=== PATIENT | male | born 1950 | race Two or more races ===

== ENCOUNTER 2019-01-08 13:43 | Outpatient (CLI) | payer MEDICARE, BC ==
[~2019-01-08] VITALS: Ht 175.3 cm; Wt 85.3 kg
[2019-01-08] MEDS ORDERED: ASPIRIN EC81 MG ORAL (16:35)
[2019-01-08 16:36] VITALS: BP 120/77
--- NOTE | 2019-01-08 20:30 | Consultation ---
DATE OF CONSULTATION: 01/08/2019 CHIEF COMPLAINT: Abdominal pain, GERD, family history of pancreatic malignancy. HISTORY OF PRESENT ILLNESS: This is a very pleasant 68-year-old male who was referred to us for complaint of right lower quadrant abdominal pain. According to him, this pain comes and goes. Over time, it is getting worse. Sometimes, he feels a bulge. Apparently, he was seen by a surgeon. He was told that he has a hernia that needs to be repaired. He also had a CT of the abdomen and pelvis, which actually showed hernia on the left side, not on the right side. Also evidence of diverticulosis, otherwise no other findings were seen. PAST MEDICAL HISTORY: 1. GERD. 2. History of coronary artery disease. PAST SURGICAL HISTORY: History of cardiac stent placement. MEDICATIONS: Currently on aspirin. FAMILY HISTORY: Father had coronary artery disease. Mother had diabetes and mother had a pancreatic mass. SOCIAL HISTORY: The patient occasionally drinks. Denies any tobacco or IV drug abuse. . Lives at home with his . ALLERGIES: No known drug allergies. REVIEW OF SYSTEMS: A 10-point review of systems was performed and positive for GERD and abdominal pain as dictated above. PHYSICAL EXAMINATION: VITAL SIGNS: Temperature 97.9, blood pressure 120/77, pulse is 60, respirations 20. HEENT: Normocephalic and atraumatic. Sclerae anicteric. NECK: Supple. No evidence of obvious lymphadenopathy. CARDIOVASCULAR: Regular rhythm. Plus S1 and S2. No obvious murmur. LUNGS: Clear to auscultation bilaterally. ABDOMEN: Positive bowel sounds. Soft and nontender. No rebound. No guarding. No peritoneal sign. EXTREMITIES: No cyanosis. No clubbing. No edema. ASSESSMENT: 1. GERD. 2. Screening colonoscopy. 3. Abdominal pain. 4. Diverticulosis. PLAN: At this time, the cause of abdominal pain is not clear. Differential diagnosis would be a lesion in the cecum or terminal ileum causing this right lower quadrant intermittent abdominal pain versus hernia. Plan is to do endoscopy and colonoscopy, endoscopy for chronic GERD and colonoscopy for screening and also to evaluate right lower quadrant abdominal pain. After that, we will make further recommendation. Meanwhile, the patient was given prescription for Linzess for chronic constipation. Elliot Katya Estes DR: Chapito JOB#: [id number] CC:
== END 2019-01-08 15:43 | disposition home or self-care (01) ==
LOC: PAN 13:43
DX: R10.9 Unspecified abdominal pain (principal); K21.9 Gastro-esophageal reflux disease without esophagitis; Z85.07 Personal history of malignant neoplasm of pancreas; I25.10 Atherosclerotic heart disease of native coronary artery without angina pectoris; Z79.82 Long term (current) use of aspirin; K57.90 Diverticulosis of intestine, part unspecified, without perforation or abscess without bleeding
CPT/HCPCS: 99202

== ENCOUNTER 2019-01-10 10:25 | Day surgery (SDC) | payer MEDICARE, BC ==
[2019-01-10] VITALS (10 sets, daily range): BP systolic 106–140; BP diastolic 54–78
[~2019-01-10] VITALS: Ht 175.3 cm; Wt 85.3 kg
[~2019-01-10 10:25] MED LIST: ASPIRIN EC81 MG ORAL
--- NOTE | 2019-01-10 11:20 | NUR ---
IV LR WAS STARTED BY YOBANY KIRK RN. NO S/S OF INFILTRATION.
[2019-01-10] MEDS ORDERED: Propofol 200mg/20ml IV ONE (11:30)
[2019-01-10] MEDS ORDERED: Lidocaine 1% MPF 10mg/ml 5ml ONE (11:30)
[2019-01-10] MEDS ORDERED: fentaNYL 100 mcg/2 mL IV PRN (11:45)
[2019-01-10] MEDS ORDERED: DiphenhydrAMINE 50mg/ml Inj IVP PRN (11:45)
[2019-01-10] MEDS ORDERED: Midazolam 2mg/2ml Inj IVP PRN (11:45)
[2019-01-10] MEDS ORDERED: Atropine Sulfate 0.4mg/ml inj IVP PRN (11:45)
--- NOTE | 2019-01-10 12:26 | Endoscopy Procedure Note ---
Endoscopy Procedure Note General Indication for Procedure: screening colon, GERD Procedures Performed: EGD, colonoscopy Operative Findings/Diagnosis: gastritis, diverticulosis Specimen: yes Pt Tolerated Procedure Well: Yes Estimated Blood Loss: none Anesthesia Anesthesiologist: julisa Anesthesia: MAC Inserted Devices Implant(s) used?: No Quality Quality of Bowel Preparation: Good Did scope reach the cecum?: Yes Was there any complications?: No GI Core Measures 50 yrs or older w/o bx or poly: No 10yrs. F/U recommended: Yes If not recommended, why?: Above average risk 18 years or older w/prev. colo: Yes <3yrs. since last colonoscopy: No Elliot Estes MD Jan 10, 2019 12:26
--- NOTE | 2019-01-10 13:36 | Anethesia Preoperative Eval ---
Anesthesia Pre-op PMH/ROS General Date of Evaluation: Jan 10, 2019 Time of Evaluation: 11:20 Anesthesiologist: rosa ASA Score: ASA 3 Mallampati Score Class I : Soft palate, uvula, fauces, pillars visible Class II: Soft palate, uvula, fauces visible Class III: Soft palate, base of uvula visible Class IV: Only hard plate visible Mallampati Classification: Class II Surgeon: lety Diagnosis: gerd, abdominal pain Surgical Procedure: egd/colonoscopy Anesthesia History: none Social History: alcohol use Family History: no anesthesia problems Allergies: Coded Allergies: No Known Allergies (Unverified , 01/08/19) Medications: see eMAR Patient NPO?: Yes Past Medical History Cardiovascular: Reports: CAD, [place] Pulmonary: Reports: [place] Neurologic/Psychiatric: Reports: depression/anxiety PSxH Narrative: coronary artery stent, colonoscopy Anesthesia Pre-op Phys. Exam Physician Exam Last Vital Signs Date Time Temp Pulse Resp B/P (MAP) Pulse Ox O2 Delivery O2 Flow Rate FiO2 01/10/19 13:15 97.4 62 17 115/58 98 Room Air 01/10/19 12:40 3 Constitutional: NAD Neurologic: CN 2-12 intact Cardiovascular: RRR Respiratory: CTA Gastrointestinal: S/NT/ND Airway Exam Mallampati Score: Class II MO: full Neck: flexible TMD: 2fb ROM: full Anesthesia Pre-op A/P Risk Assessment & Plan Assessment: asa3 Plan: mac Status Change Before Surgery: No Pre-Antibiotics Drug: Isabel Reyes MD Jan 10, 2019 13:36
--- NOTE | 2019-01-10 13:40 | Immediate Post-Op Evaluation ---
Immediate Post-Op Evalulation Immediate Post-Op Evalulation Procedure: egd/colonoscopy w/bx Date of Evaluation: Jan 10, 2019 Time of Evaluation: 12:59 IV Fluids: 450ml 0.9ns Blood Products: none Estimated Blood Loss: negligible Blood Pressure Systolic: 108 Blood Pressure Diastolic: 54 Pulse Rate: 65 Respiratory Rate: 18 O2 Sat by Pulse Oximetry: 99 Temperature (Fahrenheit): 97.6 Pain Score (1-10): 0 Nausea: No Vomiting: No Complications none Patient Status: awake, reacts, patent Hydration Status: adequate Drug: Isabel Reyes MD Jan 10, 2019 13:40
--- NOTE | 2019-01-10 13:47 | 48 Hour Post Anesthesia Eval ---
Post Anesthesia Evaluation Procedure: egd/colonoscopy w/bx Date of Evaluation: Jan 10, 2019 Time of Evaluation: 12:41 Blood Pressure Systolic: 114 0: 57 Pulse Rate: 58 Respiratory Rate: 18 Temperature (Fahrenheit): 97.6 O2 Sat by Pulse Oximetry: 99 Airway: patent Nausea: No Vomiting: No Pain Intensity: 0 Hydration Status: adequate Cardiopulmonary Status: stable Mental Status/LOC: patient returned to baseline Post-Anesthesia Complications: none Follow-up care needed: N/A Isabel Yap MD Jan 10, 2019 13:47
--- NOTE | 2019-01-10 17:00 | Procedure Note ---
DATE OF PROCEDURE: 01/10/2019 SURGEON: Elliot Estes M.D. PROCEDURE: Upper endoscopy with biopsy and colonoscopy with biopsy. ANESTHESIA: Per Dr. Ayala. INSTRUMENT: Olympus adult flexible upper endoscope and colonoscope. INDICATIONS: Screening colonoscopy evaluation, chronic GERD, abdominal pain. REASON FOR PROCEDURE: The procedure, risks, benefits, and possible consequences, including hemorrhage, aspiration, perforation and infection, and alternative treatments, were explained to the patient/legal guardian by Dr. Elliot Estes and the patient/legal guardian understood and accepted these risks. DESCRIPTION OF PROCEDURE: After informed consent was obtained and the patient was adequately sedated, Olympus upper endoscope was advanced from mouth and second portion of duodenum and retroflexion was performed in the stomach. The patient had evidence of few small shallow ulcerations in the prepyloric region with some gastritis, possibly NSAID induced. Biopsy from the antrum and body was obtained to rule out H. pylori infection. The rest of the upper endoscopic examination was within normal limits. At this time, the upper endoscope was retrieved. The patient was turned over for colonoscopy. First, rectal exam was performed, which was positive for internal hemorrhoids. Then, the scope was advanced from rectum into the cecum documented by appendiceal orifice, ileocecal valve, and right upper quadrant palpation. Quality of prep was very good. This was very challenging procedure given significant diverticulosis in the left colon. It took a lot of time and effort to pass through the sigmoid. The patient had one diminutive polyp in the transverse colon, which was removed with the cold biopsy forceps technique. Otherwise, the rest of the examination grossly within normal limits. Retroflexion of the rectum showed evidence of medium-sized nonbleeding internal hemorrhoids. SUMMARY OF FINDINGS: 1. Gastritis. 2. Few shallow gastric ulcerations/erosions. 3. Significant left-sided diverticulosis. 4. Internal hemorrhoids. RECOMMENDATIONS: 1. Follow up pathology and treat accordingly. 2. We will recommend repeat colonoscopy in 5 years. Elliot Estes M.D. DR: RUTHIE JOB#: [id number] CC:
--- NOTE | 2019-01-12 11:35 | Pre-Procedure Note/Attestation ---
Pre-Procedure Note/Attestation Complete Prior to Procedure Planned Procedure: not applicable Procedure Narrative: esophagogastroduodenoscopy and colonoscopy Indications for Procedure Pre-Operative Diagnosis: screening colon, GERD Attestation I attest that I discussed the nature of the procedure; its benefits; risks and complications; and alternatives (and the risks and benefits of such alternatives ), prior to the procedure, with the patient (or the patient's legal commercial representative). I attest that, if there was a reasonable possibility of needing a blood transfusion, the patient (or the patient's legal commercial representative) was given the [facility] standardized written summary, pursuant to the [place] Blood Safety Act ([place] Health and Safety Code # 1645, as amended). I attest that I re-evaluated the patient just prior to the surgery and that there has been no change in the patient's H&P, except as documented below: Elliot Estes MD Jan 12, 2019 11:35
--- NOTE | 2019-01-12 11:36 | Short Stay Surgery H&P ---
History of Present Illness History of Present Illness Chief Complaint see recent office note HPI Ge Suarez is a 68 year old male who was admitted on for Gerd And Abdominal Pain Patient History Allergies: Coded Allergies: No Known Allergies (Unverified , 01/08/19) Medication History Scheduled Aspirin Ec* (Aspirin Ec*), 81 MG ORAL DAILY, (Reported) Physical Exam Vital Signs Last Vital Signs Date Time Temp Pulse Resp B/P (MAP) Pulse Ox O2 Delivery O2 Flow Rate FiO2 01/10/19 13:47 58 18 99 01/10/19 13:40 140/78 Room Air 01/10/19 13:25 97.0 01/10/19 12:40 3 Plan Attestation Are the patient's medical conditions optimized for surgery? Elliot Estes MD Jan 12, 2019 11:36
--- NOTE | 2019-01-12 16:05 | Cardiology Report ---
APPROVED REPORT EKG Measurement Heart [id number] Normal sinus rhythm with sinus arrhythmia Right bundle branch block Left anterior fascicular block Bifascicular block Abnormal ECG
== END 2019-01-10 14:00 | disposition home or self-care (01) ==
LOC: GAS 10:25
DX: Z12.11 Encounter for screening for malignant neoplasm of colon (principal); K21.9 Gastro-esophageal reflux disease without esophagitis; R10.9 Unspecified abdominal pain; K29.70 Gastritis, unspecified, without bleeding; K25.9 Gastric ulcer, unspecified as acute or chronic, without hemorrhage or perforation; K57.90 Diverticulosis of intestine, part unspecified, without perforation or abscess without bleeding; K64.8 Other hemorrhoids; I25.2 Old myocardial infarction; G47.33 Obstructive sleep apnea (adult) (pediatric); F32.9 Major depressive disorder, single episode, unspecified; F41.9 Anxiety disorder, unspecified; Z95.5 Presence of coronary angioplasty implant and graft
CPT/HCPCS: 43239; 45380; 93005; J2704; 94003; 94150

== ENCOUNTER 2019-01-30 08:57 | Outpatient (CLI) | payer MEDICARE, BC ==
--- NOTE | 2019-01-30 10:29 | General Progress Note ---
Assessment/Plan Problem List: (1) Diverticulosis ICD Codes: K57.90 - Diverticulosis of intestine, part unspecified, without perforation or abscess without bleeding SNOMED: 309566327 (2) Chronic constipation ICD Codes: K59.09 - Other constipation SNOMED: 643044226 (3) Gastritis ICD Codes: K29.70 - Gastritis, unspecified, without bleeding SNOMED: 7527007 (4) one colon poyp Assessment/Plan: linzess 72 ppi repeat colon in 5 years Subjective ROS Limited/Unobtainable: Yes Allergies: Coded Allergies: No Known Allergies (Unverified , 01/08/19) Objective General Appearance: alert EENT: normal ENT inspection Neck: supple Cardiovascular: normal rate Respiratory/Chest: lungs clear Abdomen: normal bowel sounds, non tender, soft Extremities: non-tender Elliot Estes MD Jan 30, 2019 10:29
[2019-01-30 14:02] VITALS: BP 138/76
== END 2019-01-30 10:57 | disposition home or self-care (01) ==
LOC: PAN 08:57
DX: K57.90 Diverticulosis of intestine, part unspecified, without perforation or abscess without bleeding (principal); K59.09 Other constipation; K29.70 Gastritis, unspecified, without bleeding
CPT/HCPCS: 99212